=== PATIENT | male | born 1960 | race African-American/Black ===

== ENCOUNTER 2017-10-04 00:05 | Inpatient (IN) | payer OTHER ==
[~2017-10-04] VITALS: Ht 190.5 cm; Wt 93.9 kg
[2017-10-04] VITALS (23 sets, daily range): BP systolic 109–159; BP diastolic 57–81
[2017-10-04] MEDS ORDERED: SODIUM CHLORIDE 0.9% 1,000 ML IV ONE (00:16)
[2017-10-04] MEDS ORDERED: VANCOMYCIN 1 G PREMIX 200 ML IV SCH (00:45)
[2017-10-04] MEDS ORDERED: CEFEPIME HCL 2000MG/VIAL INJ IV ONE (00:45)
[2017-10-04] MEDS ORDERED: METRONIDAZOLE 500 MG PREMIX 100 ML IV ONE (00:45)
[2017-10-04 00:51] LABS: HEMATOCRIT. 38.6 % (42.0-52.0); HEMOGLOBIN. 12.3 g/dL (14.0-18.0); MEAN CORPUSCULAR HEMOGLOBIN 30.2 pg (28.0-32.0); MEAN CORPUSCULAR VOLUME 94.6 fL (80.0-94.0); MEAN PLATELET VOLUME 7.7 fl (7.4-10.4); PLATELET 721 x1000/uL (130-400); RED BLOOD CELL COUNT 4.09 mill/uL (4.7-6.1); RED CELL DISTRIBUTION WIDTH 13.3 % (11.6-14.6)
[2017-10-04 00:56] LABS: CHLORIDE 79 mEq/L (98-107)
[2017-10-04 00:58] LABS: INR 1.1; PROTHROMBIN TIME 11.6 sec (9.4-11.6)
[2017-10-04 01:00] LABS: ETHANOL BLOOD < 10 mg/dL
[2017-10-04] MEDS ORDERED: INSULIN REGULAR (DRIP) 100 UNITS in SODIUM CHLORIDE 0.9% 100 ML IV NR (01:13)
[2017-10-04] MEDS ORDERED: SODIUM CHLORIDE 0.9% 1,000 ML IV STA (01:13)
[2017-10-04] MEDS ORDERED: SODIUM CHLORIDE 0.9% 1000ML BAG (SEPSIS BOLUS) IV NR (01:15)
[2017-10-04 01:42] LABS: BETA HYDROXYBUTYRATE 13.1 mMol/L (0.0-0.3)
[2017-10-04 02:06] LABS: PHOSPHORUS 3.2 mg/dL (2.5-4.9)
[2017-10-04 02:10] LABS: ATYPICAL LYMPHOCYTES 1; PLATELET ESTIMATE INCREASED
[2017-10-04 04:06] LABS: PHOSPHORUS 2.4 mg/dL (2.5-4.9)
[2017-10-04] MEDS ORDERED: CEFEPIME 2,000 MG in DEXT 5% WATER 100 ML IV NR (04:15)
[2017-10-04 05:11] LABS: CLARITY URINE CLOUDY (CLEAR); COLOR URINE YELLOW (YELLOW); KETONES URINE 4+ (NEGATIVE); LEUKOCYTE ESTERASE URINE NEGATIVE (NEGATIVE); NITRITE URINE NEGATIVE (NEGATIVE); OCCULT BLOOD URINE NEGATIVE (NEGATIVE); PROTEIN URINE TRACE (NEGATIVE); SPECIFIC GRAVITY URINE 1.022 (1.005-1.030); UROBILINOGEN URINE 0.2 E.U./dL (0.2-1.0)
[2017-10-04 06:25] LABS: CHLORIDE 93 mEq/L (98-107)
[2017-10-04 06:30] LABS: PHOSPHORUS 1.2 mg/dL (2.5-4.9)
[2017-10-04] MEDS ORDERED: DEXTROSE 50% WATER 50ML SYRINGE IV PRN ×3 (07:45→20:00)
[2017-10-04] MEDS: BLOOD SUGAR DIAGNOSTIC STRIP TEST SCH ×13 (08:32→20:59)
[2017-10-04] MEDS: SODIUM CHLORIDE 0.9% 1,000 ML IV SCH ×3 (08:40→23:15)
[2017-10-04] MEDS ORDERED: INSULIN REGULAR (DRIP) 100 UNITS in SODIUM CHLORIDE 0.9% 99 ML IV SCH (09:30)
[2017-10-04 10:40] LABS: CHLORIDE 98 mEq/L (98-107)
[2017-10-04] MEDS ORDERED: CLONIDINE 0.1MG TABLET PO PRN (11:30)
[2017-10-04] MEDS: PIPERACILLIN/TAZ 3.375G PREMIX 50 ML IV SCH ×3 (11:38→21:05)
[2017-10-04] MEDS ORDERED: SODIUM PHOS,M-BASIC-D-BASIC 15 MM in DEXT 5% WATER 245 ML IV NR (13:00)
[2017-10-04] MEDS ORDERED: VANCOMYCIN 1250MG in DEXTROSE 5% WATER 250ML IV SCH (14:00)
[2017-10-04] MEDS ORDERED: PANTOPRAZOLE SODIUM 40 MG/VIAL IV NR (19:00)
[2017-10-04 19:24] LABS: CHLORIDE 101 mEq/L (98-107)
[2017-10-04] MEDS: INSULIN LISPRO 100 UNITS/ML SUBCUT SCH (21:06)
[2017-10-04] MEDS ORDERED: INSULIN GLARGINE UD 100 UNITS/ML SYR SUBCUT SCH ×2 (22:00)
[2017-10-04] MEDS: VANCOMYCIN 1500MG in DEXTROSE 5% WATER 250ML IV SCH (22:24)
[2017-10-04] MEDS ORDERED: ACETAMINOPHEN 650MG/20.3ML UDC PO PRN (22:30)
[2017-10-05] VITALS (18 sets, daily range): BP systolic 118–154; BP diastolic 57–90
[2017-10-05] MEDS: SODIUM CHLORIDE 0.9% 1,000 ML IV SCH (01:00)
[2017-10-05] MEDS: PIPERACILLIN/TAZ 3.375G PREMIX 50 ML IV SCH ×3 (03:21→16:15)
[2017-10-05 05:04] LABS: BASOPHILS % 0.2 % (0.0-2.0); EOSINOPHILS % 0.2 % (0.0-5.0); HEMATOCRIT. 31.3 % (42.0-52.0); HEMOGLOBIN. 10.7 g/dL (14.0-18.0); LYMPHOCYTES % 7.3 % (20.0-50.0); MEAN CORPUSCULAR HEMOGLOBIN 30.6 pg (28.0-32.0); MEAN CORPUSCULAR VOLUME 89.9 fL (80.0-94.0); MEAN PLATELET VOLUME 8.1 fl (7.4-10.4); MONOCYTES % 11.6 % (2.0-8.0); NEUTROPHILS % 80.7 % (40.0-76.0); PLATELET 569 x1000/uL (130-400); RED BLOOD CELL COUNT 3.49 mill/uL (4.7-6.1); RED CELL DISTRIBUTION WIDTH 12.9 % (11.6-14.6)
[2017-10-05 05:48] LABS: CHLORIDE 97 mEq/L (98-107)
[2017-10-05] MEDS: BLOOD SUGAR DIAGNOSTIC STRIP TEST SCH ×3 (06:22→16:30)
[2017-10-05] MEDS: INSULIN LISPRO 100 UNITS/ML SUBCUT SCH ×3 (06:24→17:58)
[2017-10-05] MEDS ORDERED: PANTOPRAZOLE SODIUM 40 MG/VIAL IV SCH (09:00)
[2017-10-05] MEDS: VANCOMYCIN 1500MG in DEXTROSE 5% WATER 250ML IV SCH (10:10)
[2017-10-05] MEDS ORDERED: INSULIN GLARGINE UD 100 UNITS/ML SYR SUBCUT SCH ×2 (15:30→22:00)
[2017-10-05] MEDS ORDERED: INSULIN LISPRO 100 UNITS/ML SUBCUT SCH (16:30)
== END 2017-10-05 20:20 | disposition short-term general hospital (02) | DRG 871 ==
LOC: ER 00:05 → MICUSO 02:10 → EDBEDREQTM 02:14 → EDBEDREQ 02:14 → EDBEDREQSVC 02:14 → ENRESERV 02:27 → MICUSO 07:20
PROVIDERS: ADMIT Internal Medicine Nephrology; ATTEND Internal Medicine Nephrology
DX: A41.9 Sepsis, unspecified organism (principal); E11.10 Type 2 diabetes mellitus with ketoacidosis without coma; K85.90 Acute pancreatitis without necrosis or infection, unspecified; E43 Unspecified severe protein-calorie malnutrition; E87.1 Hypo-osmolality and hyponatremia; N17.9 Acute kidney failure, unspecified; E11.52 Type 2 diabetes mellitus with diabetic peripheral angiopathy with gangrene; I96 Gangrene, not elsewhere classified; M86.8X7 Other osteomyelitis, ankle and foot; I10 Essential (primary) hypertension; E83.39 Other disorders of phosphorus metabolism; E11.42 Type 2 diabetes mellitus with diabetic polyneuropathy; D47.3 Essential (hemorrhagic) thrombocythemia; E11.69 Type 2 diabetes mellitus with other specified complication; Z68.25 Body mass index [BMI] 25.0-25.9, adult; Z83.3 Family history of diabetes mellitus; Z82.3 Family history of stroke; Z80.6 Family history of leukemia
CPT/HCPCS: 36415; 71045; 73630; 73718; 80048; 80053; 81003; 82010; 82962; 83036; 83605; 83690; 83735; 83930; 84100; 84484; 85025; 85610; 87040; 96365; 96366; 96367; 96375; 96376; 99291; C9113; G0482; J0692; J1815; J2543; J3370; J3490; J7030; J7040; J7050; J7060